=== PATIENT | female | born 2000 | race Hispanic/Latino ===

== ENCOUNTER 2020-09-22 00:48 | Emergency (ER) | payer OTHER ==
[2020-09-22 00:59] VITALS: BP 122/65
[2020-09-22 01:29] LABS: BASOPHILS % (AUTO) 0.3 % (0.0-5.0); EOSINOPHILS % (AUTO) 0.2 % (0.0-8.0); HEMATOCRIT 42.7 % (36-48); LYMPHOCYTES % (AUTO) 14.3 % (21.0-51.0); MEAN CORPUSCULAR HEMOGLOBIN 27.5 pg (27.0-33.0); MEAN CORPUSCULAR HGB CONC 32.3 g/dL (32.0-36.0); MEAN CORPUSCULAR VOLUME 85.1 fL (80-100); NEUTROPHILS % (AUTO) 77.8 % (40.0-77.0); PLATELET COUNT (AUTO) 437 K/uL (130-400); RED BLOOD CELL COUNT(AUTO) 5.02 MIL/uL (4.00-5.50); RED CELL DISTRIBUTION WIDTH 12.3 % (11.0-15.5); WHITE BLOOD COUNT (AUTO) 20.3 K/uL (4.8-10.8)
[2020-09-22] MEDS ORDERED: DiphenhydrAMINE HCL 50 MG/ML VIAL IV ONE (01:30)
[2020-09-22] MEDS ORDERED: KETOROLAC 15MG/ML VIAL (15MG/ML) IM ONE (01:30)
[2020-09-22] MEDS ORDERED: FAMOTIDINE 20MG VIAL IV ONE (01:30)
[2020-09-22] MEDS ORDERED: 0.9%NACL 1000ML 1,000 ML IV SCH (01:30)
[2020-09-22 01:45] LABS: CREATININE 0.8 mg/dL (0.5-1.5); POTASSIUM 5.4 mmol/L (3.5-5.1)
[2020-09-22 01:48] LABS: ALBUMIN 3.8 g/dL (3.5-5.0); BILIRUBIN,TOTAL 0.4 mg/dL (0.2-1.0); TOTAL PROTEIN, SERUM 8.2 g/dL (6.0-8.3)
[2020-09-22] MEDS ORDERED: IBUP-2076 PO (02:02)
[2020-09-22] MEDS ORDERED: FAMO-136 PO ×2 (02:02→02:08)
[2020-09-22] MEDS ORDERED: OMEP20CA12 PO (02:02)
[2020-09-22] MEDS ORDERED: HYDR50CA PO ×2 (02:02→02:08)
[2020-09-22 02:07] VITALS: BP 104/66
[2020-09-22] MEDS ORDERED: OMEP-420 PO (02:08)
[2020-09-22 03:08] VITALS: BP 105/61
== END 2020-09-22 03:19 ==
LOC: EDH 00:48
DX: K90.0 Celiac disease (principal); Z79.1 Long term (current) use of non-steroidal anti-inflammatories (NSAID)
CPT/HCPCS: 36415; 80053; 81025; 83690; 85025; 96361; 96372; 96374; 96375; 99284; J1200; J1885; J3490; J7030